=== PATIENT | female | born 1995 | race African-American/Black ===

== ENCOUNTER 2016-05-30 20:15 | Emergency (ER) | payer SELFPAY ==
--- NOTE | 2016-05-30 20:47 | ED ---
Abdominal Pain HPI - General Chief Complaint: Abdominal Pain Stated Complaint: Complications Time Seen by Provider: 05/30/16 20:29 Source: patient, EMS, RN notes reviewed Mode of arrival: EMS Limitations: no limitations - History of Present Illness Initial Comments: Patient is a 20-year-old female with a chief complaint of lower cramping abdominal pain for approximately 2 hours. Patient reports that she is approximately 3 months . She states that she has had some spotting a few months ago however she denies any spotting today. Patient reports that she has received no care as of this time. Patient was brought in via police escort because she is currently being taken to [facility]. Patient has multiple warrants for her arrest. Patient reports that she has been able to eat today and didn't states she has some nausea. She reports this her fourth with 2 living children and one previous miscarriage. Patient denies any changes in bowel habits or bladder. Patient states that she's had increased nausea in the morning. - Related Data Previous Rx's Medication Instructions Recorded Rni-Yfmt-Arqrl Acid 1 cap PO DAILY #30 cap 05/30/16 [-U Capsule] Allergies Allergy/AdvReac Type Severity Reaction Status Date / Time No Known Allergies Allergy Verified 05/30/16 20:50 Review of Systems ROS Statement: Those systems with pertinent positive or pertinent negative responses have been documented in the HPI. ROS Other: All systems not noted in ROS Statement are negative. Past Medical History Past Medical History: No Reported History History of Any Multi-Drug Resistant Organisms: None Reported Past Surgical History: No Surgical Hx Reported Past Psychological History: No Psychological Hx Reported Smoking Status: Never smoker Past Alcohol Use History: None Reported Past Drug Use History: None Reported General Exam - General Exam Comments Initial Comments: Patient is a 20-year-old female. She does not appear to be any acute distress. Limitations: no limitations General appearance: alert, in no apparent distress Head exam: Present: atraumatic, normocephalic, normal inspection Eye exam: Present: normal appearance, PERRL, EOMI. Absent: scleral icterus, conjunctival injection, periorbital swelling ENT exam: Present: normal exam, mucous membranes moist Neck exam: Present: normal inspection. Absent: tenderness, meningismus, lymphadenopathy Respiratory exam: Present: normal lung sounds bilaterally. Absent: respiratory distress, wheezes, rales, rhonchi, stridor Cardiovascular Exam: Present: regular rate, normal rhythm, normal heart sounds. Absent: systolic murmur, diastolic murmur, rubs, gallop, clicks GI/Abdominal exam: Present: soft, tenderness (Reports lower abdominal tenderness mainly in the right lower quadrant.), normal bowel sounds. Absent: distended, guarding, rebound, rigid Extremities exam: Present: normal inspection, full ROM, normal capillary refill. Absent: tenderness, pedal edema, joint swelling, calf tenderness Back exam: Present: normal inspection Neurological exam: Present: alert, oriented X3, CN II-XII intact Psychiatric exam: Present: normal affect, normal mood Skin exam: Present: warm, dry, intact, normal color. Absent: rash Course Vital Signs 05/30/16 05/30/16 05/30/16 20:28 22:01 22:05 Temperature 98.3 F 97.6 F 98.2 F Pulse Rate 97 106 H 88 Respiratory 16 18 18 Rate Blood Pressure 157/70 158/85 152/82 O2 Sat by Pulse 97 100 97 Oximetry Medical Decision Making - Medical Decision Making Patient tamra 20 year old female with chief complaint of lower abdominal pain , This started when patient was being arrested. She was brought in police escort. She states she is 3 months with no care. Labs reveal no acute abnormalities. Transvaginal US show viable gestational age of 7 weeks. Patient denies any vaginal spotting at this time. When I attempted to do speculum exam it was noted that police escort left, and she is not going to be arrested anymore. At that point, patients friends came into the [facility] stating they needed to leave right away. Patient refused speculum exam. Patient reported she needed to leave at this time. IV is removed and she'll be discharged. I discussed importance of follow up with OB and patient given Rx. REturn parameters discussed. - Lab Data Result diagrams: 05/30/16 20:47 05/30/16 20:47 Lab Results 05/30/16 05/30/16 05/30/16 Range/Units 20:47 20:47 20:47 WBC 6.7 (3.8-10.6) k/uL RBC 4.27 (3.80-5.40) m/uL Hgb 11.5 (11.4-16.0) gm/dL Hct 35.8 (34.0-46.0) % MCV 83.9 (80.0-100.0) fL MCH 26.8 (25.0-35.0) pg MCHC 32.0 (31.0-37.0) g/dL RDW 12.6 (11.5-15.5) % Plt Count 225 (150-450) k/uL Neutrophils % 61 % Lymphocytes % 29 % Monocytes % 5 % Eosinophils % 2 % Basophils % 0 % Neutrophils # 4.1 (1.3-7.7) k/uL Lymphocytes # 2.0 (1.0-4.8) k/uL Monocytes # 0.4 (0-1.0) k/uL Eosinophils # 0.1 (0-0.7) k/uL Basophils # 0.0 (0-0.2) k/uL Sodium 138 (137-145) mmol/L Potassium 3.7 (3.5-5.1) mmol/L Chloride 104 (98-107) mmol/L Carbon Dioxide 23 (22-30) mmol/L Anion Gap 11 mmol/L BUN 6 L (7-17) mg/dL Creatinine 0.65 (0.52-1.04) mg/dL Est GFR (MDRD) Af Amer >60 (>60 ml/min/1.73 sqM) Est GFR (MDRD) Non-Af >60 (>60 ml/min/1.73 sqM) Glucose 83 (74-99) mg/dL Calcium 9.2 (8.4-10.2) mg/dL Total Bilirubin 0.4 (0.2-1.3) mg/dL AST 13 L (14-36) U/L ALT 27 (9-52) U/L Alkaline Phosphatase 74 (38-126) U/L Total Protein 7.3 (6.3-8.2) g/dL Albumin 4.0 (3.5-5.0) g/dL HCG, Quant 74988.2 mIU/mL Urine Color Urine Appearance (Clear) Urine pH (5.0-8.0) Ur Specific Dagmar (1.001-1.035) Urine Protein (Negative) Urine Glucose (UA) (Negative) Urine Ketones (Negative) Urine Blood (Negative) Urine Nitrate (Negative) Urine Bilirubin (Negative) Urine Urobilinogen (<2.0) mg/dL Ur Leukocyte Esterase (Negative) Urine RBC (0-5) /hpf Urine WBC (0-5) /hpf Ur Squamous Epith Cells (0-4) /hpf Urine Mucus (None) /hpf Urine HCG, Qual (Not Detectd) Blood Type B Negative Blood Type Recheck No 05/30/16 05/30/16 Range/Units 20:47 20:47 WBC (3.8-10.6) k/uL RBC (3.80-5.40) m/uL Hgb (11.4-16.0) gm/dL Hct (34.0-46.0) % MCV (80.0-100.0) fL MCH (25.0-35.0) pg MCHC (31.0-37.0) g/dL RDW (11.5-15.5) % Plt Count (150-450) k/uL Neutrophils % % Lymphocytes % % Monocytes % % Eosinophils % % Basophils % % Neutrophils # (1.3-7.7) k/uL Lymphocytes # (1.0-4.8) k/uL Monocytes # (0-1.0) k/uL Eosinophils # (0-0.7) k/uL Basophils # (0-0.2) k/uL Sodium (137-145) mmol/L Potassium (3.5-5.1) mmol/L Chloride (98-107) mmol/L Carbon Dioxide (22-30) mmol/L Anion Gap mmol/L BUN (7-17) mg/dL Creatinine (0.52-1.04) mg/dL Est GFR (MDRD) Af Amer (>60 ml/min/1.73 sqM) Est GFR (MDRD) Non-Af (>60 ml/min/1.73 sqM) Glucose (74-99) mg/dL Calcium (8.4-10.2) mg/dL Total Bilirubin (0.2-1.3) mg/dL AST (14-36) U/L ALT (9-52) U/L Alkaline Phosphatase (38-126) U/L Total Protein (6.3-8.2) g/dL Albumin (3.5-5.0) g/dL HCG, Quant mIU/mL Urine Color Yellow Urine Appearance Clear (Clear) Urine pH 5.5 (5.0-8.0) Ur Specific Dagmar 1.022 (1.001-1.035) Urine Protein Trace H (Negative) Urine Glucose (UA) Negative (Negative) Urine Ketones 2+ H (Negative) Urine Blood Negative (Negative) Urine Nitrate Negative (Negative) Urine Bilirubin Negative (Negative) Urine Urobilinogen 2.0 (<2.0) mg/dL Ur Leukocyte Esterase Small H (Negative) Urine RBC 2 (0-5) /hpf Urine WBC 8 H (0-5) /hpf Ur Squamous Epith Cells 3 (0-4) /hpf Urine Mucus Occasional H (None) /hpf Urine HCG, Qual Detected (Not Detectd) Blood Type Blood Type Recheck - Radiology Data Radiology results: report reviewed Transvaginal US shows viable intrauterine measuring 7 weeks 1 day. No acute abnormalities. Disposition Clinical Impression: Disposition: HOME SELF-CARE Condition: Good Instructions: (ED) Additional Instructions: Patient started to follow-up with [facility]. Patient instructed to take vitamins. Return to the [facility] if any alarming signs or symptoms occur. Return in 2 days for repeat beta hCG blood work. Prescriptions: Kav-Srie-Owzhm Acid [-U Capsule] 1 cap PO DAILY #30 cap Referrals: None,Stated [Primary Care Provider] - 1-2 days Time of Disposition: 21:54
[2016-05-30 21:01] LABS: Appearance,Urine Clear (Clear); Bilirubin,Urine Negative (Negative); Glucose,Urine (UA) Negative (Negative); Ketones,Urine 2+ (Negative); Leukocyte Esterase,Urine Small (Negative); Mucus,Urine Occasional /hpf; Nitrite,Urine Negative (Negative); PH, Urine 5.5 (5.0-8.0); Particle Count 5544; Protein,Urine Trace (Negative); RBC,Urine 2 /hpf (0-5); Specific Gravity,Urine 1.022 (1.001-1.035); Squamous Epithelial Cell,Urine 3 /hpf (0-4); UA Billing (MACRO vs. MICRO) MICRO; WBC,Urine 8 /hpf (0-5)
[2016-05-30 21:03] LABS: Basophils % (A) 0 %; CH 27.1; CHCM 32.4; Eosinophils # (A) 0.1 k/uL (0-0.7); Eosinophils % (A) 2 %; HCT 35.8 % (34.0-46.0); HDW 2.25; HGB 11.5 gm/dL (11.4-16.0); Luc # (Auto) 0.14; Luc % (Auto) 2; Lymphocytes % (A) 29 %; MCH 26.8 pg (25.0-35.0); MCV 83.9 fL (80.0-100.0); Mean Platelet Volume 8.1; Monocytes # (A) 0.4 k/uL (0-1.0); Monocytes % (A) 5 %; Neutrophils # (A) 4.1 k/uL (1.3-7.7); Neutrophils % (A) 61 %; RBC 4.27 m/uL (3.80-5.40); RDW 12.6 % (11.5-15.5); WBC 6.7 k/uL (3.8-10.6); WBC (Perox) 7.02
[2016-05-30 21:08] LABS: ALT 27 U/L (9-52); AST 13 U/L (14-36); Alkaline Phosphatase 74 U/L (38-126); Anion Gap 11 mmol/L; Blood Urea Nitrogen 6 mg/dL (7-17); Calcium 9.2 mg/dL (8.4-10.2); Carbon Dioxide 23 mmol/L (22-30); Chloride 104 mmol/L (98-107); Glucose 83 mg/dL (74-99); Non-African American GFR(MDRD) >60 (>60 ml/min/1.73 sqM); Potassium 3.7 mmol/L (3.5-5.1); Sodium 138 mmol/L (137-145); Total Bilirubin 0.4 mg/dL (0.2-1.3); Total Protein 7.3 g/dL (6.3-8.2)
--- NOTE | 2016-05-30 21:42 | US ---
EXAMINATION TYPE: US OB <=14 wks transvag DATE OF EXAM: 05/30/2016 9:32 PM COMPARISON: NONE CLINICAL HISTORY: pain. EXAM PERFORMED: US OB <=14 wks transvag EXAM MEASUREMENTS: GESTATIONAL AGE / DATING Physician Established: Not established Dates by LMP: LMP unknown Dates by First Scan: No previous Dates by Current Scan for: (7 weeks/1 days) EDC: 01/15/2017 MATERNAL ANATOMY Uterus: 7.6 x 5.0 x 5.8 cm Right Ovary: 2.0 x 1.2 x 1.0 cm Left Ovary: 2.7 x 2.0 x 3.2 cm Post CDS / Adnexa: wnl Presence of free fluid: No Presence of corpus luteal cyst: Yes, left ovary measuring 2.1x 1.4 x 2.3 cm Presence of subchorionic bleed: No GESTATION / SURVEY CRL: 1.0cm (7 weeks/ 1 days) Yolk Sac (normal less than 6mm): 2 mm Heart Rate: 141 bpm Rhythm: Normal IUP Date of LMP: Unknown Beta HcG (if available): Not available TECHNOLOGIST IMPRESSION: Viable IUP visualized with an LONNIE of 01/15/2017 IMPRESSION: Viable intrauterine gestation with a gestational age of 7 weeks 1 day +/- 5 days. Estimated date of c onfinement based on this examination is 01/15/2017.
[2016-05-30 21:48] LABS: HCG,Quantitative Serum 53546.2 mIU/mL
[2016-05-30 22:01] VITALS: RESP 18
[2016-05-30 22:06] VITALS: BP 152/82; PULSE 88; TEMP 98.2
== END 2016-05-30 22:05 | disposition home or self-care (01) ==
LOC: EC 20:15
DX: O26.891 Other specified pregnancy related conditions, first trimester (principal); Z3A.01 Less than 8 weeks gestation of pregnancy; R10.9 Unspecified abdominal pain
CPT/HCPCS: 36415; 76801; 76817; 80053; 81001; 81025; 84702; 85025; 86900; 86901; 99284